=== PATIENT | male | born 1940 | race Caucasian/White ===

== ENCOUNTER → 2023-10-15 | Outpatient (CLI) | payer BC | END | disposition home or self-care (01) | LOC: RESCLI 13:09 | PROVIDERS: ATTEND Internal Medicine | DX: I48.91 Unspecified atrial fibrillation (principal); K50.90 Crohn's disease, unspecified, without complications; E55.9 Vitamin D deficiency, unspecified; E03.9 Hypothyroidism, unspecified; N52.9 Male erectile dysfunction, unspecified; N40.0 Benign prostatic hyperplasia without lower urinary tract symptoms; M81.0 Age-related osteoporosis without current pathological fracture; I10 Essential (primary) hypertension; Z98.890 Other specified postprocedural states; Z79.899 Other long term (current) drug therapy ==